=== PATIENT | male | born 1995 | race Caucasian/White ===

== ENCOUNTER 2023-06-14 20:30 | Emergency (ER) | payer BC, SELFPAY ==
[2023-06-14 20:32] VITALS: BP 165/101; PULSE 125; RESP 18; TEMP 36.2; O2SAT 93
[2023-06-14 20:58] LABS: Absolute Lymphocyte Count 3.05 X10^3/uL (0.83-4.51); Absolute Neutrophil Count 5.6 X10^3/uL (2.0-7.7); Basophil# 0.07 X10^3/uL; Basophil% 0.7 % (0-1); Eosinophil# 0.14 X10^3/uL; Eosinophils% 1.4 % (0-5); Hematocrit 43.6 % (40-54); Hemoglobin 14.8 g/dL (13.0-16.5); Lymphocyte # 3.05 X10^3/ul (0.83-4.51); Lymphocyte % 31.5 % (19-41); Mean Corp Hgb Conc 33.9 g/dL (32-36); Mean Corpuscular Volume 82.4 fL (80-94); Mean Platelet Vol. 10.7 fl (6.2-12.0); Monocyte# 0.74 X10^3/uL; Monocyte% 7.6 % (0-10); NRBC Flagged by Analyzer 0 % (0-5); Neutrophil # 5.64 X10^3/uL (2.7-7.7); Neutrophil % 58.4 % (47-70); Platelet Count 249 K/mm3 (150-450); RBC Distribution Width CV 13.2 % (11.6-14.6); RBC Distribution Width SD 39.3 fl (35.1-43.9); Red Blood Count 5.29 M/mm3 (4.6-6.2); White Blood Count 9.7 K/mm3 (4.4-11.0)
--- NOTE | 2023-06-14 21:00 | RAD_ITS ---
INDICATION: chest pain EXAMINATION/TECHNIQUE: X-RAY - XR Chest 1 View COMPARISON: No relevant prior comparison study available FINDINGS: LINES/DEVICES: None. LUNGS: The lungs are well expanded. No consolidation, edema or effusion. No pneumothorax. MEDIASTINUM AND CARDIOVASCULAR STRUCTURES: Cardiac silhouette not enlarged. Central airways and mediastinal contour are unremarkable. BONES AND SOFT TISSUES: No acute abnormality. RAD/Chest 1 View (Portable) IMPRESSION: No acute pulmonary finding. Electronically Signed: Florentin Lepe MD at 21:22 EST ,
[2023-06-14 21:15] LABS: Anion Gap 4 (5-15); BUN 14 mg/dL (7-18); BUN/Creat Ratio 13.9 RATIO (10-20); Calcium,Total 9.2 mg/dL (8.5-10.1); Chloride 111 mmol/L (98-107); Creatinine, Serum 1.01 mg/dL (0.70-1.30); EST Glomerular Filtration Rate 94 mL/min (>60); Est Glom Filt Rate - Afr Amer 114 mL/min (>60); Glucose 130 mg/dL (74-106); Potassium 3.5 mmol/L (3.5-5.1); Sodium Level 141 mmol/L (136-145); Troponin-I HS (w/2H Reflex) 6 pg/mL (3.0-78.0)
[2023-06-14 21:44] VITALS: BP 150/106; PULSE 106; RESP 19; O2SAT 94
[2023-06-14 21:45] VITALS: BMI 41.8
--- NOTE | 2023-06-14 22:34 | EDS_ITS ---
HPI History of Present Illness Chief Complaint: Palpitations Narrative Narrative: 27-year-old male who denies significant past medical history, does not really see a primary care provider, presents with elevated heart rate in the 180s that he experienced after eating dinner this evening. He states that he had just gotten done eating, and he was not doing any strenuous activity when he felt his heart racing. He looked on his watch and noticed that his heart rate was in the 180s. He thought maybe taking deep breaths made it better. He denies any chest pain, no nausea or vomiting, no diaphoresis. No recent fevers or chills, no diarrhea, no other symptoms. No leg swelling. PFSH PFSH Medical History no medical history Home Medications NK 06/14/23 [History Last Taken Unknown] Allergy/AdvReac Type Severity Reaction Status Date / Time No Known Allergies Allergy Verified 06/14/23 20:38 Social History Smoking Status: Never smoker ROS ROS ED ROS Narrative Constitutional: No fever, no chills. HEENT: No sore throat. No neck pain. No loss of vision. No rhinorrhea. Cardiovascular: No chest pain. Positive palpitations. Elevated heart rate in the 180s-resolved no pedal edema. Respiratory: No cough, no shortness of breath. Abdominal: No abdominal pain. No nausea. No vomiting. Genitourinary: No dysuria. No hematuria. Musculoskeletal: No myalgias. No arthralgias. Neurologic: No headaches. No dizziness. No lightheadedness. Skin: No rash. No change in color. Psychiatric: No depression. No anxiety. Positive stressors in life. EXAM Physical Exam Narrative Exam Narrative: Afebrile. Vital signs noted. HEENT: Normocephalic. Atraumatic. PERRL, EOMI. Neck soft and supple. No point tenderness or step off. Cardiovascular: Regular rate and rhythm with intermittent tachycardia as high as 106.. No murmurs, rubs, or gallops appreciated. Respiratory: No tachypnea. Lungs clear to auscultation bilaterally. Gastrointestinal: Abdomen soft, nontender, with normoactive bowel sounds. No rebound or guarding. Neurological: Awake. Alert. Nonfocal, nonlateralizing. Skin: No rash. Normal color. No pallor. Musculoskeletal: No pedal edema. Full range of motion extremities. Const Vital Signs: 06/14/23 20:32 06/14/23 20:39 06/14/23 21:43 Temperature 97.1 F L Temperature Source Temporal Pulse Rate 125 H Respiratory Rate 18 Respiratory Effort Normal Non-Labored Blood Pressure 165/101 H Blood Pressure Mean 122 Pulse Ox 93 Oxygen Delivery Method Room Air Room Air 06/14/23 21:44 06/14/23 23:07 Temperature Temperature Source Pulse Rate 106 H 93 Respiratory Rate 19 H 17 Respiratory Effort Blood Pressure 150/106 H 139/77 H Blood Pressure Mean 120 97 Pulse Ox 94 96 Oxygen Delivery Method Room Air Room Air MDM MDM MDM Narrative Medical decision making narrative: In the differential diagnosis is paroxysmal supraventricular tachycardia versus atrial fibrillation versus baseline sinus tachycardia. Initially, I reviewed his vitals upon arrival and he had elevated blood pressure with a pulse of 125. Currently, his pulse ox is 97% on room air and he is not tachycardic with a heart rate in the 90s. Nursing protocol labs were entered and reviewed. I reviewed his laboratory work from today and he has a normal white count of 9.7, hemoglobin normal at 14.8, hematocrit 43.6, platelet count normal at 249, chloride slightly elevated at 111 which I think is nonspecific. Glucose is appropriately elevated at 130, with a normal anion gap/low at 4. Initial high- sensitivity troponin is 6. 2-hour troponin is currently pending. I will add a D-dimer and he will be bolused normal saline in the event that he has intravascular volume depletion. I have low suspicion for pulmonary embolism, but he is intermittently tachycardic. He does not describe pleuritic chest pain, and his history and physical does not necessarily support pulmonary embolism. Chest x-ray in 1 view interpreted by myself independently shows no evidence of an acute process, no pneumothorax or pneumonia. I do not feel antibiotics are indicated. I reviewed the radiology report which confirms my independent interpretation. EKG was obtained and interpreted by myself independently which demonstrates sinus tachycardia at 113 bpm without ectopy or acute ST changes. No STEMI. I reviewed his second troponin and that is 5 for negative delta. I do not feel he requires admission at this time. Additionally, D-dimer was added and is negative at less than 0.27 on review. He was referred to a primary care provider and the alternative energy engineer on-call. His current heart rate is 93 on the monitor. Disposition is discharged home in stable condition. History & Record Review Discussion w/independent historian: Patient and Significant other Additional record(s) reviewed:: No prior records Lab Data Attestation: I reviewed the patient's lab results. Labs: Laboratory Results - last 24 hr 06/14/23 06/14/23 20:50 23:06 WBC 9.7 RBC 5.29 Hgb 14.8 Hct 43.6 MCV 82.4 MCH 28.0 MCHC 33.9 RDW Std Deviation 39.3 RDW Coeff of Celia 13.2 Plt Count 249 MPV 10.7 Immature Gran % (Auto) 0.400 Neut % (Auto) 58.4 Lymph % (Auto) 31.5 [place] % (Auto) 7.6 Eos % (Auto) 1.4 Baso % (Auto) 0.7 Absolute Neuts (auto) 5.6 Absolute Lymphs (auto) 3.05 Nucleated RBC % 0 D-Dimer Quant (PE/DVT) < 0.27 L Sodium 141 Potassium 3.5 Chloride 111 H Carbon Dioxide 26.0 Anion Gap 4 L BUN 14 Creatinine 1.01 Est GFR (MDRD) Af Amer 114 Est GFR (MDRD) Non-Af 94 BUN/Creatinine Ratio 13.9 Glucose 130 H Calcium 9.2 Troponin I High Sens 6 5 Radiography Diagnostic Testing: Clinical Impression(s) from Imaging Studies Chest X-Ray 06/14/23 21:00 IMPRESSION: No acute pulmonary finding. Electronically Signed: Florentin Lepe MD at 21:22 EST , Discharge Plan Triage Chief Complaint: Palpitations ED Provider: Yonatan Woody Dx/Rx/DC Orders Clinical Impression: Palpitations, Sinus tachycardia Instructions: Understanding Tachycardia, ED Palpitations Prescriptions: No Action NK Primary Care Provider: Care Physician,No Primary Referrals: Hayley Augustin MD [Med Staff - Active Staff] - As soon as possible Nuno Castaneda MD [Med Staff - Active Staff] - As soon as possible Care Physician,No Primary [Primary Care Provider] - Disposition Disposition: Home, Self Care
[2023-06-14 22:55] LABS: Reflex Troponin-HS? (from REC) Y
[2023-06-14] MEDS: 0.9% Normal Saline (1000mL) 1,000 ML 999 ML IV (23:04)
[2023-06-14 23:07] VITALS: BP 139/77; PULSE 93; RESP 17; O2SAT 96
[2023-06-14 23:30] LABS: D-Dimer Quantitative (DVT/PE) < 0.27 FEU/ug/m (0.27-0.49)
[2023-06-14 23:32] LABS: Troponin-I HS 5 pg/mL (3.0-78.0)
[2023-06-15 00:03] VITALS: BP 136/74; PULSE 88; RESP 18; O2SAT 100
== END 2023-06-15 00:08 | disposition home or self-care (01) ==
PROVIDERS: Emergency Provider Emergency Medicine; Visit Provider Emergency Medicine
DX: R00.2 Palpitations (principal); R00.0 Tachycardia, unspecified
CPT/HCPCS: 71045; 80048; 84484; 85025; 85379; 93005; 96360; 99283; J7030; A4216

== ENCOUNTER 2023-06-19 20:27 | Emergency (ER) | payer BC, SELFPAY ==
[2023-06-19 20:29] VITALS: BP 175/98; PULSE 100; RESP 18; TEMP 36.8; O2SAT 99; BMI 39.9
--- NOTE | 2023-06-19 20:31 | EKG12_ITS ---
Test Reason : DYSRHYTHMIA Blood Pressure : / mmHG Vent. Rate : 094 BPM Atrial Rate : 094 BPM P-R Int : 154 ms QRS Dur : 098 ms QT Int : 340 ms P-R-T Axes : 050 035 009 degrees QTc Int : 425 ms Normal sinus rhythm with sinus arrhythmia Normal ECG Confirmed by VIOLET ALLISON, MIR ([id number]), society editor RUFINA MORENO ([id number]) on 06/24/2023 1:55:42 P M Referred By: Confirmed By:CARMELLA LAZO MD
--- NOTE | 2023-06-19 20:55 | RAD_ITS ---
INDICATION: chest pain EXAMINATION/TECHNIQUE: X-RAY - XR Chest 1 View COMPARISON: 06/14/2023 FINDINGS: LINES/DEVICES: None. LUNGS: The lungs are well expanded. No consolidation, edema or effusion. No pneumothorax. MEDIASTINUM AND CARDIOVASCULAR STRUCTURES: Cardiac silhouette not enlarged. Central airways and mediastinal contour are unremarkable. BONES AND SOFT TISSUES: Unremarkable. RAD/Chest 1 View (Portable) IMPRESSION: No acute pulmonary finding. Electronically Signed: Jose Guzman MD at 21:05 EST ,
[2023-06-19 21:03] LABS: Absolute Lymphocyte Count 2.94 X10^3/uL (0.83-4.51); Absolute Neutrophil Count 5.6 X10^3/uL (2.0-7.7); Basophil# 0.05 X10^3/uL; Basophil% 0.5 % (0-1); Eosinophil# 0.09 X10^3/uL; Hematocrit 44.4 % (40-54); Hemoglobin 14.6 g/dL (13.0-16.5); Lymphocyte # 2.94 X10^3/ul (0.83-4.51); Lymphocyte % 31.4 % (19-41); Mean Corp Hgb Conc 32.9 g/dL (32-36); Mean Corpuscular Hgb 27.7 pg (27.0-32.0); Mean Corpuscular Volume 84.3 fL (80-94); Mean Platelet Vol. 10.4 fl (6.2-12.0); Monocyte# 0.71 X10^3/uL; Monocyte% 7.6 % (0-10); NRBC Flagged by Analyzer 0 % (0-5); Neutrophil # 5.55 X10^3/uL (2.7-7.7); Neutrophil % 59.3 % (47-70); Platelet Count 249 K/mm3 (150-450); RBC Distribution Width CV 12.7 % (11.6-14.6); RBC Distribution Width SD 39.2 fl (35.1-43.9); Red Blood Count 5.27 M/mm3 (4.6-6.2); White Blood Count 9.4 K/mm3 (4.4-11.0)
[2023-06-19 21:21] LABS: Anion Gap 3 (5-15); BUN 14 mg/dL (7-18); BUN/Creat Ratio 13.2 RATIO (10-20); Calcium,Total 9.3 mg/dL (8.5-10.1); Chloride 108 mmol/L (98-107); Creatinine, Serum 1.06 mg/dL (0.70-1.30); EST Glomerular Filtration Rate 89 mL/min (>60); Est Glom Filt Rate - Afr Amer 107 mL/min (>60); Estimated Creatinine Clearance 125.11 ml/min; Glucose 135 mg/dL (74-106); Potassium 3.6 mmol/L (3.5-5.1); Sodium Level 139 mmol/L (136-145); Troponin-I HS (w/2H Reflex) 4 pg/mL (3.0-78.0)
--- NOTE | 2023-06-19 21:25 | EX.ED.DYSGE1 ---
HPI History of Present Illness Chief Complaint: Palpitations Informant: patient Onset/Context/Timing Onset: Today and Hours (1) Context: Gradual Onset Timing: Intermittent Quality: Racing Location: Chest Worsened by: Nothing Relieved by: taking a deep breath and trying to relax Narrative Narrative: Patient presents with palpitations that became worse again tonight. Patient states he was seen here last week for the same thing. Patient states he has a follow-up appointment with his primary care physician next Saturday. Patient states he felt like his heart was racing. Patient states he felt flushed all over. Patient denies any shortness of breath. Patient denies any cough. Patient denies any chest pain. Patient admits to some nausea but denies any vomiting. Patient states it would get better if he was able to take a deep breath and try to relax. Patient states he was unable to do this tonight so he came to the emergency department. [facility] Home Medications NK 06/14/23 [History Last Taken Unknown] Allergy/AdvReac Type Severity Reaction Status Date / Time No Known Allergies Allergy Verified 06/19/23 20:30 Family History (Updated 06/19/23 @ 22:[address] Carlos Rosenbaum DO) Father Heart disease Pacemaker Surgical History no surgical history no surgical history Social History Smoking Status: Never smoker ROS ROS ED Constitutional Constitutional ED: Reports chills and subjective; Denies fever(s) Eyes Eyes: Denies blurry vision or change in vision ENT ENT ED: Denies rhinorrhea or sore throat Cardiovascular Cardiovascular: Reports palpitations; Denies chest pain Respiratory/Chest Respiratory/Chest: Denies cough or dyspnea Gastrointestinal Gastrointestinal: Reports nausea; Denies vomiting Genitourinary Genitourinary ED: Denies dysuria or hematuria Musculoskeletal Musculoskeletal: Denies back pain or neck pain Integumentary Denies abscess or rash Neurologic Neurologic: Reports headache(s); Denies weakness Allergic/Immunologic Allergic/Immunologic ED: Denies mouth swelling or urticaria EXAM Physical Exam Const Vital Signs: 06/19/23 20:29 06/19/23 20:54 06/19/23 20:54 Temperature 98.3 F Temperature Source Temporal Pulse Rate 100 Respiratory Rate 18 Respiratory Effort Short of Breath Blood Pressure 175/98 H Blood Pressure Mean 123 Pulse Ox 99 Oxygen Delivery Method Room Air Room Air 06/19/23 23:00 Temperature Temperature Source Pulse Rate 75 Respiratory Rate 17 Respiratory Effort Blood Pressure 132/79 H Blood Pressure Mean 94 Pulse Ox 95 Oxygen Delivery Method Positive well nourished and well developed General Appearance ED: well developed and NAD HEENT Reports moist mucous membranes Neck supple and no JVD Chest Wall inspection of chest normal and palpation of chest normal Resp normal respiratory effort and clear to auscultation bilaterally Cardio regular rate and regular rhythm GI non-tender and non-distended Palpation: soft Extremity normal to inspection General Extremety ED: Negative for edema or tenderness General Extremity: Negative for edema Neuro oriented x3, CN's II-XII intact bilaterally and no sensory deficits noted Sensorium / Orientation: alert Motor Exam: strength 5/5 throughout Psych mental status grossly normal MDM MDM MDM Narrative Medical decision making narrative: Differential most close cardiac dysrhythmia, cardiac ischemia, pneumonia, pneumothorax, anxiety, and electrolyte abnormality. EKG will be obtained to assess for cardiac dysrhythmia and cardiac ischemia. Chest x-ray will be obtained to assess for pneumonia and pneumothorax. CBC will be obtained to assess for leukocytosis and anemia. Basic metabolic profile will be obtained to assess for electrolyte abnormality and renal function. High-sensitivity troponin will be obtained to assess for cardiac ischemia. 2-hour repeat high-sensitivity troponin will be obtained to assess for ongoing cardiac ischemia. Lab Data Attestation: I reviewed the patient's lab results. Lab results narrative: CBC was reviewed and was within normal limits. Basic metabolic profile was reviewed and was within normal limits. High-sensitivity troponin was reviewed and was normal at 4. 2-hour repeat high-sensitivity troponin was also normal at 4. Labs: Laboratory Results - last 24 hr 06/19/23 20:51 WBC 9.4 RBC 5.27 Hgb 14.6 Hct 44.4 MCV 84.3 MCH 27.7 MCHC 32.9 RDW Std Deviation 39.2 RDW Coeff of Celia 12.7 Plt Count 249 MPV 10.4 Immature Gran % (Auto) 0.200 Neut % (Auto) 59.3 Lymph % (Auto) 31.4 [place] % (Auto) 7.6 Eos % (Auto) 1.0 Baso % (Auto) 0.5 Absolute Neuts (auto) 5.6 Absolute Lymphs (auto) 2.94 Nucleated RBC % 0 Sodium 139 Potassium 3.6 Chloride 108 H Carbon Dioxide 28.0 Anion Gap 3 L BUN 14 Creatinine 1.06 Estim Creat Clear Calc 125.11 Est GFR (MDRD) Af Amer 107 Est GFR (MDRD) Non-Af 89 BUN/Creatinine Ratio 13.2 Glucose 135 H Calcium 9.3 Troponin I High Sens 4 Radiography Chest X-Ray - ED: 1 View, Read by ED Physician, Read by Radiologist and No Acute Disease Diagnostic Testing: Clinical Impression(s) from Imaging Studies Chest X-Ray 06/19/23 20:55 IMPRESSION: No acute pulmonary finding. Electronically Signed: Jose Guzman MD at 21:05 EST , Portable 1 view chest x-ray was obtained. On my independent interpretation, lung de [place] rosa are clear. There is normal cardiac silhouette. Bony thorax is normal. There is no acute process noted. Radiologist also interpreted the x-ray and agrees. Treatment and Re-Evaluation :: Patient was feeling better on reevaluation. Patient was advised of his findings. Patient was instructed to follow-up with his primary care physician in 5 to 7 days. Patient was advised he may need further testing as an outpatient. Patient understood and was agreeable with the plan. All questions were answered. Discharge Plan Triage Chief Complaint: Palpitations ED Provider: Carlos Rosenbaum Dx/Rx/DC Orders Clinical Impression: Palpitations, Morbid obesity with BMI of 40.0-44.9, adult Instructions: ED Palpitations Prescriptions: No Action NK Primary Care Provider: Nuno Castaneda Referrals: Nuno Castaneda MD [Primary Care Provider] - Keep Katiuska appointment Disposition Disposition: Home, Self Care Discharge Date/Time: 06/20/23 00:22
[2023-06-19 22:58] LABS: Reflex Troponin-HS? (from REC) Y
[2023-06-19 23:00] VITALS: BP 132/79; PULSE 75; RESP 17; O2SAT 95
[2023-06-20 00:03] LABS: Troponin-I HS 4 pg/mL (3.0-78.0)
[2023-06-20 00:21] VITALS: BP 146/78; PULSE 89; RESP 16; O2SAT 98
== END 2023-06-20 00:22 | disposition home or self-care (01) ==
PROVIDERS: Emergency Provider Emergency Medicine; PCP Family Medicine; Visit Provider Emergency Medicine
DX: R00.2 Palpitations (principal); E66.01 Morbid (severe) obesity due to excess calories; Z68.41 Body mass index [BMI] 40.0-44.9, adult
CPT/HCPCS: 71045; 80048; 84484; 85025; 93005; 99283; A4216

== ENCOUNTER → 2023-07-27 | Outpatient (CLI) | payer BC, SELFPAY ==
[2023-07-27 11:04] LABS: Cholesterol 138 mg/dL (200); Glucose 87 mg/dL (74-106); High Density Lipoprotein 38 mg/dL; Triglycerides 117 mg/dL; Very Low Density Lipoprotein 23 mg/dL (5-40)
== END | disposition home or self-care (01) ==
PROVIDERS: PCP Family Medicine; Referring Provider Internal Medicine Cardiovascular Disease; Visit Provider Internal Medicine Cardiovascular Disease
DX: R53.83 Other fatigue (principal); R00.2 Palpitations
CPT/HCPCS: 36415; 80061; 82947; 84443

== ENCOUNTER → 2023-10-05 | Outpatient (CLI) | payer BC, SELFPAY ==
[2023-10-05 11:29] LABS: Anion Gap 4 (5-15); BUN 11 mg/dL (7-18); BUN/Creat Ratio 11.4 RATIO (10-20); Calcium,Total 9.4 mg/dL (8.5-10.1); Chloride 110 mmol/L (98-107); Cholesterol 130 mg/dL (200); Creatinine, Serum 0.96 mg/dL (0.70-1.30); EST Glomerular Filtration Rate 99 mL/min (>60); Est Glom Filt Rate - Afr Amer 120 mL/min (>60); Glucose 94 mg/dL (74-106); High Density Lipoprotein 36 mg/dL; Potassium 4.2 mmol/L (3.5-5.1); Sodium Level 138 mmol/L (136-145); Thyroid Stim Hormone (TSH) 1.43 uIU/mL (0.358-3.74); Triglycerides 128 mg/dL; Very Low Density Lipoprotein 26 mg/dL (5-40)
== END | disposition home or self-care (01) ==
LOC: LAB 10:16
PROVIDERS: PCP Family Medicine; Referring Provider Family Medicine; Visit Provider Family Medicine
DX: Z00.00 Encounter for general adult medical examination without abnormal findings (principal)
CPT/HCPCS: 36415; 80048; 80061; 84403; 84443

== ENCOUNTER → 2023-12-24 | Outpatient (CLI) | payer BC, SELFPAY ==
--- NOTE | 2023-12-24 10:58 | ECHOD_ITS ---
Reason For Study: ARRHYTHMIA Procedure This was a 2D Doppler, Color Flow transthoracic echocardiogram. Myocardial strain analysis was performed in this exam to aid in the assessment of cardiac function. Exam performed in department. Left Ventricle Normal size and thickness. LV systolic ejection fraction estimated at 50%. Global longitudinal strain -16.5% which is borderline. Apical hypokinesis. Cannot rule out noncompaction. Recommend cardiac MRI for further evaluation. Right Ventricle Normal right ventricle. Atria The left and right atria are normal. Mitral Valve Trivial mitral valve insufficiency. Tricuspid Valve Trivial tricuspid valve insufficiency. Unable to estimate RV systolic pressure due to insufficient tricuspid regurgitant envelope. Aortic Valve Trisinus/trileaflet aortic valve. Pulmonic Valve The pulmonic valve is not well visualized. Great Vessels Normal sized aortic root. Pericardium/Pleural No pericardial effusion. MMode/2D Measurements & Calculations LVIDd: 5.6 cm IVSd: 1.1 cm LVOT diam: 2.3 cm LVIDs: 3.4 cm LVPWd: 1.1 cm LVOT area: 4.3 cm2 RVDd: 4.0 cm FS: 39.6 % Ao root diam: 3.3 cm LAV(MOD-bp): 48.5 ml LVAd ap4: 34.5 cm2 LAV(MOD-bp) Indexed: 18.6 ml/m2 LVLd ap4: 8.6 cm LAV(MOD-sp2): 49.1 ml EDV(MOD-sp4): 113.8 ml LAV(MOD-sp4): 49.1 ml EDV(sp4-el): 117.2 ml LVAs ap4: 19.9 cm2 LVLs ap4: 7.1 cm ESV(MOD-sp4): 46.4 ml ESV(sp4-el): 47.2 ml EF(MOD-sp4): 59.3 % EF(sp4-el): 59.7 % LVAd ap2: 32.8 cm2 SV(MOD-sp4): 67.5 ml SV(MOD-sp2): 57.4 ml LVLd ap2: 9.0 cm EDV(MOD-sp2): 97.5 ml EDV(sp2-el): 102.1 ml LVAs ap2: 19.6 cm2 LVLs ap2: 7.9 cm ESV(MOD-sp2): 40.2 ml ESV(sp2-el): 41.1 ml EF(MOD-sp2): 58.8 % SV(sp4-el): 70.0 ml LA dimension(2D): 4.1 cm LA A4 area: 18.1 cm2 RA A4 area: 15.9 cm2 TAPSE: 2.0 cm Time Measurements MV dec time: 0.19 sec Doppler Measurements & Calculations MV E max kraig: 78.7 cm/sec Lat Peak E' Kraig: 16.4 cm/sec Med Peak E' Kraig: 8.2 cm/sec MV A max kraig: 69.8 cm/sec E/E' lat: 4.8 E/E' med: 9.6 MV E/A: 1.1 Ao V2 max: 103.4 cm/sec LV V1 max: 93.3 cm/sec MV dec slope: 411.6 cm/sec2 Ao max P.3 mmHg LV V1 max P.5 mmHg Ao V2 mean: 74.5 cm/sec LV V1 mean P.1 mmHg Ao mean P.5 mmHg LV V1 mean: 67.9 cm/sec Ao V2 VTI: 23.2 cm LV V1 VTI: 20.5 cm AV (velocity ratio): 0.89 JAH(I,D): 3.8 cm2 JAH(V,D): 3.9 cm2 SV(LVOT): 87.9 ml PA V2 max: 105.9 cm/sec PA max PG (full): 2.0 mmHg ECHO/Echo Complete Interpretation Summary LV systolic ejection fraction estimated at 50%. Global longitudinal strain -16. 5% which is borderline. Apical hypokinesis. Cannot rule out noncompaction. Recommend cardiac MRI for fu rther evaluation. Ordering Physician: Hayley Augustin Referring Physician: Nuno Castaneda Performed By: Majo Galvan RDCS
--- NOTE | 2023-12-24 12:41 | STRESSREP_ITS ---
Stress Test Report Date: 12/24/2023 Procedure: Exercise tolerance test Indications: Hypertension Consent: Per the patient Procedure: The patient exercised on a Jeramie protocol for 9 minutes achieving a peak heart rate of 181 bpm (94% predicted maximal heart rate) with a peak blood pressure 156/70 mmHg and a peak MET capacity of approximately 10.4 MET's. The baseline ECG demonstrated sinus rhythm. The peak exercise ECG demonstrated sinus tachycardia with no ischemic changes. Normal chronotropic response to exercise. No arrhythmias noted. The functional capacity was considered good. The patient had no complaints of chest discomfort during exercise or recovery. The examination was discontinued secondary to target heart rate being achieved. Impression: 1. Technically adequate (percent predicted maximal heart rate greater than 85%) exercise tolerance test 2. Peak exercise ECG with no ischemic changes. Normal chronotropic response to exercise. 3. There were no cardiac dysrhythmias during exercise or recovery This note was generated with [employer] software. It may contain incorrect words, spelling, and punctuation that were not noted in checking the note before signing.
== END | disposition home or self-care (01) ==
PROVIDERS: PCP Family Medicine; Referring Provider Internal Medicine Cardiovascular Disease; Visit Provider Internal Medicine Cardiovascular Disease
DX: I10 Essential (primary) hypertension (principal); I49.8 Other specified cardiac arrhythmias; R53.83 Other fatigue; R00.2 Palpitations
CPT/HCPCS: 93017; 93306

== ENCOUNTER → 2024-10-24 | Outpatient (CLI) | payer BC, SELFPAY ==
[2024-10-24 12:20] LABS: Cholesterol 143 mg/dL (<=200); High Density Lipoprotein 39 mg/dL; Low Density Lipoprotein Calc. 86 mg/dL; Triglycerides 91 mg/dL; Very Low Density Lipoprotein 18 mg/dL (5-40)
[2024-10-24 13:41] LABS: Anion Gap 10 (5-15); BUN 10 mg/dL (4-19); Calcium,Total 9.4 mg/dL (7.6-11.0); Carbon Dioxide 22.2 mmol/L (21.0-32.0); Chloride 106 mmol/L (98-108); Creatinine, Serum 0.97 mg/dL (0.70-1.20); EST Glomerular Filtration Rate 110 (>60); Glucose 92 mg/dL (70-99); Potassium 4.2 mmol/L (3.3-5.1); Sodium Level 138 mmol/L (133-145)
== END | disposition home or self-care (01) ==
LOC: LAB 10:11
PROVIDERS: PCP Family Medicine; Referring Provider Family Medicine; Visit Provider Family Medicine
DX: Z00.00 Encounter for general adult medical examination without abnormal findings (principal)
CPT/HCPCS: 36415; 80048; 80061